=== PATIENT | male | born 1945 | race Caucasian/White ===

== ENCOUNTER 2016-10-22 04:33 | Emergency (ER) | payer MEDICARE, BC ==
[2016-10-22] MEDS ORDERED: Sodium Chloride 0.9% 10 ML Syringe FLUSH PRN ×2 (04:53)
[2016-10-22] MEDS ORDERED: HYDROmorphone 1 MG/ML Syringe IVPUSH ONE (04:54)
[2016-10-22] MEDS ORDERED: Ondansetron 4 MG/2 ML SDV IVPUSH ONE (04:54)
--- NOTE | 2016-10-22 04:58 | EDM.PDOC ---
ED HPI GENERAL MEDICAL PROBLEM - General Chief Complaint: Chest Pain Stated Complaint: CHEST PAIN FEELS LIKE VOMITING Time Seen by Provider: 10/22/16 04:52 Source of Information: Reports: Patient, Family, RN Notes Reviewed History Limitations: Reports: No Limitations - History of Present Illness INITIAL COMMENTS - FREE TEXT/NARRATIVE: 70-year-old gentleman presents emergency department day complaint of epigastric abdominal pain, he states the pain does radiate up into his chest and through into his back he denies any shortness of breath no diaphoresis he is nauseated state he had hotdogs last night, pain started about 5 hours prior chest Pain Score (Numeric/FACES): 8 - Related Data Allergies Allergy/AdvReac Type Severity Reaction Status Date / Time No Known Allergies Allergy Verified 10/22/16 04:55 Home Meds: Home Meds Omeprazole 20 mg PO DAILY 10/22/16 [History] Past Medical History Gastrointestinal History: Reports: GERD Social & Family History - Tobacco Use Smoking Status *Q: Never Smoker ED ROS GENERAL - Review of Systems Review Of Systems: See Below Constitutional: Reports: No Symptoms HEENT: Reports: No Symptoms Respiratory: Reports: No Symptoms Cardiovascular: Reports: Chest Pain GI/Abdominal: Reports: Abdominal Pain, Nausea, Vomiting : Reports: No Symptoms Musculoskeletal: Reports: No Symptoms Skin: Reports: No Symptoms Neurological: Reports: No Symptoms (Any other health problems site for reflux left the) ED EXAM, GI/ABD - Physical Exam Exam: See Below (2) Text/Narrative:: General: 70-year-old male, moderate discomfort secondary to pain, alert and oriented x3 HEENT: head is atraumatic normocephalic, eyes pupils equal round reactive to light, sclera clear no conjunctivitis appreciated. Ears tympanic membranes clear and huff landmarks and light reflex are present bilaterally canals are clear. Nose no septal deviation, nares are clear, no blood present. Mouth mucosa is moist and pink no erythema or exudate noted in soft palate, tongue is midline uvula is midline, dentition is intact. Neck: Supple no thyromegaly no tracheal deviation. Nodes: Cervical nodes subclavicular nodes nontender no palpable lymphadenopathy noted. Lungs: clear to auscultation bilaterally with symmetrical respirations, no adventitious noise appreciated. CV: Regular rate and rhythm S1 and S2 appreciated no murmurs rubs or gallops noted. Abdomen: Soft, tender epigastric region and right upper quadrant region, no palpable masses or organomegaly appreciated, no distention no guarding bowel sounds are present, . Neuro: Cranial nerves II through XII grossly intact Skin: Warm and dry, intact Extremities: No lower extremity edema appreciated, Course - Vital Signs Last Recorded V/S: Last Vital Signs Temp 97.2 F 10/22/16 05:02 Pulse 69 10/22/16 05:50 Resp 14 10/22/16 05:50 BP 173/109 H 10/22/16 05:55 Pulse Ox 100 10/22/16 05:50 - Orders/Labs/Meds Orders: Active Orders 24 hr Category Date Time Status EKG Documentation Completion [RC] ASDIRECTED Care 10/22/16 04:54 Active Peripheral IV Care [RC] . DIRECTED Care 10/22/16 04:54 Active Abdomen Pelvis w Cont [CT] Stat Exams 10/22/16 05:38 Taken Sodium Chloride 0.9% [Saline Flush] Med 10/22/16 04:53 Active 10 ml FLUSH ASDIRECTED PRN Sodium Chloride 0.9% [Saline Flush] Med 10/22/16 04:53 Active 10 ml FLUSH ASDIRECTED PRN Peripheral IV Insertion Adult [OM.PC] Urgent Oth 10/22/16 04:53 Ordered EKG 12 Lead [EK] Stat Ther 10/22/16 04:53 Ordered Medication Orders Sodium Chloride (Saline Flush) 10 ml FLUSH ASDIRECTED PRN PRN Reason: Keep Vein Open Last Admin: 10/22/16 05:02 Dose: 10 ml Sodium Chloride (Saline Flush) 10 ml FLUSH ASDIRECTED PRN PRN Reason: Keep Vein Open Last Admin: 10/22/16 05:49 Dose: 10 ml Labs: Laboratory Tests 10/22/16 10/22/16 10/22/16 Range/Units 05:11 05:11 05:11 WBC 11.3 H (4.5-11.0) K/uL RBC 4.80 (4.30-5.90) M/uL Hgb 14.9 (12.0-15.0) g/dL Hct 41.4 (40.0-54.0) % MCV 86 (80-98) fL MCH 31 (27-31) pg MCHC 36 (32-36) % Plt Count 188 (150-400) K/uL Neut % (Auto) 83 H (36-66) % Lymph % (Auto) 10 L (24-44) % [place] % (Auto) 6 (2-6) % Eos % (Auto) 1 L (2-4) % Baso % (Auto) 0 (0-1) % PT 10.2 (9.5-12.0) sec INR 0.96 (0.80-1.20) APTT 27.4 (27.0-36.0) sec Sodium 137 L (140-148) mmol/L Potassium 3.8 (3.6-5.2) mmol/L Chloride 101 (100-108) mmol/L Carbon Dioxide 29 (21-32) mmol/L Anion Gap 10.8 (5.0-14.0) mmol/L BUN 18 (7-18) mg/dL Creatinine 0.9 (0.8-1.3) mg/dL Est Cr Clr Drug Dosing 78.86 mL/min Estimated GFR (MDRD) > 60 (>60) Glucose 132 H (74-106) mg/dL Calcium 8.8 (8.5-10.1) mg/dL Total Bilirubin 0.8 (0.2-1.0) mg/dL AST 20 (15-37) U/L ALT 24 (12-78) U/L Alkaline Phosphatase 72 (46-116) U/L CK-MB (CK-2) 1.6 (0-3.6) mg/mL Troponin I < 0.017 (0.000-0.056) ng/mL Total Protein 7.4 (6.4-8.2) g/dL Albumin 3.7 (3.4-5.0) g/dL Globulin 3.7 H (2.3-3.5) g/dL Albumin/Globulin Ratio 1.0 L (1.2-2.2) Lipase 199 (73-393) U/L Meds: Medications Generic Name Dose Route Start Last Admin Trade Name Freq PRN Reason Stop Dose Admin Sodium Chloride 10 ml 10/22/16 04:53 10/22/16 05:02 Saline Flush FLUSH 10 ml ASDIRECTED PRN Administration Keep Vein Open Sodium Chloride 10 ml 10/22/16 04:53 10/22/16 05:49 Saline Flush FLUSH 10 ml ASDIRECTED PRN Administration Keep Vein Open Discontinued Medications Generic Name Dose Route Start Last Admin Trade Name Alejandroq PRN Reason Stop Dose Admin Fentanyl 100 mcg 10/22/16 05:37 10/22/16 05:43 Sublimaze IVPUSH 10/22/16 05:38 100 mcg ONETIME ONE Administration Hydromorphone HCl 1 mg 10/22/16 04:54 10/22/16 04:58 Dilaudid IVPUSH 10/22/16 04:55 1 mg ONETIME ONE Administration Sodium Chloride 100 mls @ 4.3 mls/sec 10/22/16 05:54 10/22/16 06:09 Normal Saline IV 10/22/16 05:55 4.3 mls/sec ASDIRECTED STA Administration Iopamidol 142 ml 10/22/16 05:53 10/22/16 06:08 Isovue-300 (61%) IV 10/22/16 05:54 150 ml . DIRECTED STA Administration Nitroglycerin 0.4 mg 10/22/16 05:52 10/22/16 05:55 Nitrostat SL 10/22/16 05:53 0.4 mg ONETIME ONE Administration Ondansetron HCl 4 mg 10/22/16 04:54 10/22/16 05:03 Zofran IVPUSH 10/22/16 04:55 4 mg ONETIME ONE Administration Departure - Departure Time of Disposition: 07:21 Disposition: Home, Self-Care 01 Condition: Good Clinical Impression: Epigastric pain - Discharge Information Forms: ED Department Discharge Additional Instructions: Use hydrocodone as needed for pain control, use nitroglycerin for your epigastric pain, please follow-up with your primary care provider upon return home - My Orders Last 24 Hours: My Active Orders 10/22/16 04:53 Sodium Chloride 0.9% [Saline Flush] 10 ml FLUSH ASDIRECTED PRN Sodium Chloride 0.9% [Saline Flush] 10 ml FLUSH ASDIRECTED PRN Peripheral IV Insertion Adult [OM.PC] Urgent EKG 12 Lead [EK] Stat 10/22/16 04:54 EKG Documentation Completion [RC] ASDIRECTED Peripheral IV Care [RC] . DIRECTED 10/22/16 05:38 Abdomen Pelvis w Cont [CT] Stat - Assessment/Plan Last 24 Hours: My Active Orders 10/22/16 04:53 Sodium Chloride 0.9% [Saline Flush] 10 ml FLUSH ASDIRECTED PRN Sodium Chloride 0.9% [Saline Flush] 10 ml FLUSH ASDIRECTED PRN Peripheral IV Insertion Adult [OM.PC] Urgent EKG 12 Lead [EK] Stat 10/22/16 04:54 EKG Documentation Completion [RC] ASDIRECTED Peripheral IV Care [RC] . DIRECTED 10/22/16 05:38 Abdomen Pelvis w Cont [CT] Stat Plan: Assessment Acuity = acute Site and laterality = epigastric pain complicated patient with history of Alfredo fundoplication Etiology = suspicious for complications of the Alfredo Manifestations = none Location of injury = Home Lab values = CBC, CMP, troponin all within normal limits EKG demonstrates normal sinus rhythm CT scan of the abdomen shows hiatal hernia portion of the fundoplication wrap above the diaphragm, colonic diverticulosis and several small fat-containing ventral hernias Plan I did review options with him as well as lab work and CT scan results he is given try hydrocodone for pain control as well as nitroglycerin glycerin sublingual for pain control, he received 1 mg Dilaudid and 100 g of fentanyl which provided no relief the nitroglycerin seemed to help the most. He will follow-up with his primary care provider upon return home Patient was in agreement with the plan all questions were answered, they were instructed to return to the emergency department or call for worsening symptoms. This note was dictated using [employer] voice recognition software please call with any questions.
[2016-10-22] MEDS ORDERED: fentaNYL 100 MCG/2 ML SDV IVPUSH ONE (05:37)
[2016-10-22] MEDS ORDERED: Nitroglycerin 0.4 MG Tab.SL SL ONE (05:52)
[2016-10-22] MEDS ORDERED: Iopamidol 612 MG/ML 150 ML Bottle IV STA (05:53)
[2016-10-22] MEDS ORDERED: Sodium Chloride 0.9% 100 ML IV STA (05:54)
[2016-10-22 06:09] VITALS: BP 163/108
== END 2016-10-22 08:00 | disposition home or self-care (01) ==
LOC: JP.ED 04:33
DX: R10.13 Epigastric pain (principal); K21.9 Gastro-esophageal reflux disease without esophagitis; Z79.899 Other long term (current) drug therapy
CPT/HCPCS: 36415; 74177; 80053; 82553; 83690; 84484; 85025; 85610; 85730; 93005; 96374; 96375; 99285; J1170; J2405; J3010; J7030; J7050; 93010; 99284; A9270-GY